=== PATIENT | female | born 1980 | race Caucasian/White ===

== ENCOUNTER 2020-02-05 11:14 | Emergency (ER) | payer BC, SELFPAY ==
[2020-02-05 11:25] VITALS: BP 111/74; PULSE 83; RESP 21; TEMP 36.8; O2SAT 100; BMI 19.5
[2020-02-05 11:49] LABS: UTC Influenza A Antigen Negative (Negative)
[2020-02-05 11:50] LABS: UTC Influenza B Antigen Negative (Negative)
[2020-02-05 11:51] LABS: UTC Strep Screen (Rapid) Negative (Negative)
--- NOTE | 2020-02-05 11:54 | HMH.EDUTC ---
[facility] [place] Clinical Impression: Viral syndrome Pharyngitis Qualifiers: Pharyngitis/tonsillitis etiology: unspecified etiology Qualified Code(s): J02.9 - Acute pharyngitis, unspecified Disposition: Home, Self-Care Condition on Discharge: Good Instructions: Sore Throat, Preventing the Spread of Coronavirus Discharge Instructions Additional Instructions: Drink plenty of fluids. Take tylenol for pain or fever. Take the medications as directed. Follow up with your regular doctor. GO TO THE ER FOR ANY WORSENING SYMPTOMS FOLLOW THE DIRECTIONS ON THE COVID-19 HAND OUT THAT WE GAVE YOU REGARDING SELF-ISOLATION UNTIL YOU KNOW YOUR COVID-19 RESULTS Prescriptions: Azithromycin [Z-David 250mg Tab*] 250 mg PO UD DOSE PK #6 tab Transmission Status: Received by [id number] Referrals: PCP,No [Primary Care Provider] - Forms: Work/School Release Time of Disposition: 12:02 Medical Decision Making - Medical Records Medical records reviewed: No: I reviewed the patient's medical records. - Thaddeus Inquiry Pt receiving controlled substance: No Vital Signs: 02/05/20 11:25 02/05/20 12:10 Temperature 98.3 F 98.3 F Temperature Source Oral Pulse Rate 83 Pulse Rate [Right Brachial] 83 Respiratory Rate 21 21 Blood Pressure 111/74 Blood Pressure [Right Arm] 111/74 Blood Pressure Mean [Right Arm] 86 Blood Pressure Source [Right Arm] Automatic Cuff Blood Pressure Position [Right Arm] Sitting 02 Sat by Pulse Oximetry 100 Oxygen Delivery Method Room Air - Lab Data Lab Results 02/05/20 11:40: Influenza Type A Ag Negative, Influenza Type B Ag Negative 02/05/20 11:40: Strep Scn Rapid Clinic Negative Orders (Tests/Meds): ORDERS Category Date Time Status Covid-19 Nasal PCR Sendout [facility] Stat Lab 02/05/20 11:30 Received Strep Screen Confirmation Stat Micro 02/05/20 11:40 Received [facility] [place] HPI - General Stated complaint: hedache,sore throat,ear pain Time Seen by Provider: 02/05/20 11:54 Mode of Arrival: Ambulatory Source of Information: Patient Limitations: No Limitations Description of Symptoms (Recalled from Triage Doc. by RN): PATIENT C/O HEADACHE, SORE THROAT, AND LEFT EAR PAIN SINCE YESTERDAY HEENT Symptoms (Recalled from RN notes): Yes Resp Symptoms (Recalled from RN notes): No Skin Symptoms (Recalled from RN notes): No MS Symptoms (Recalled from RN notes): No Functional Status (Recalled from RN notes): WNL - History of Present Illness Provider Complaint: She c/o sore throat, sinus congestion and left ear pain since yesterday. She denies any known exposure to covid, but she wants to be sure because she has to be around her parents who are both not well. - Related Data Home Medications Medication Instructions Recorded Confirmed Methylphenidate HCl 20 mg PO DAILY 02/05/20 02/05/20 [Methylphenidate ER ([place])] PARoxetine HCL [Paxil] 15 mg PO DAILY 02/05/20 02/05/20 Sodium Oxybate [Xyrem] 9 gm PO DAILY 02/05/20 02/05/20 Previous Rx's Medication Instructions Recorded Azithromycin [Z-David 250mg Tab*] 250 mg PO UD DOSE PK #6 tab 02/05/20 Allergies Allergy/AdvReac Type Severity Reaction Status Date / Time No Known Allergies Allergy Verified 02/05/20 11:32 - Worker's Comp Is this a Worker's Comp case?: No [facility] History - Hepatitis A Screen Drug use history?: No High risk sexual behaviors?: No History of sexually transmitted infection?: No Currently employed?: No Childcare worker?: No Do you have indoor plumbing?: Yes Do you have electricity?: Yes Attestation statement:: This patient has been screened for Hepatitis A risk factors. I have reviewed the patient's past medical history: Yes - Social History Alcohol Intake: never Occupational Status: other ROS Obtained: Yes All systems reviewed & no additional complaints - Constitutional Constitutional: Reports chills, Reports fever(s), Reports poor appetite, Reports malaise - Eyes Eyes
[2020-02-05 12:10] VITALS: BP 111/74; PULSE 83; RESP 21; TEMP 36.8; O2SAT 100
[2020-02-06 12:15] LABS: Covid-19 Nasal PCR Sendout Lex Not Detected
== END 2020-02-05 12:12 | disposition home or self-care (01) ==
PROVIDERS: Emergency Provider Nurse Practitioner Family
DX: J02.9 Acute pharyngitis, unspecified (principal); Z20.828 Contact with and (suspected) exposure to other viral communicable diseases
CPT/HCPCS: 87804; 87880; 99202; U0004

== ENCOUNTER → 2021-04-27 13:13 | Outpatient (CLI) | payer BC, SELFPAY | PROVIDERS: Visit Provider Nurse Practitioner | DX: Z20.822 Contact with and (suspected) exposure to COVID-19 (principal) | CPT/HCPCS: C9803; U0003; U0005 ==